=== PATIENT | female | born 2000 | race Caucasian/White ===

== ENCOUNTER 2019-07-26 05:47 | Day surgery (SDC) | payer OTHER ==
[2019-07-26] MEDS ORDERED: CEFAZOLIN 1 GM INJ (07:25)
[2019-07-26] MEDS ORDERED: PROPOFOL 20 ML ×2 (07:25→08:17)
[2019-07-26] MEDS ORDERED: FENTAnyl 50 MCG/ML VIAL (07:26)
[2019-07-26] MEDS ORDERED: MIDAZOLAM 1 MG/ML 2 ML INJ (07:26)
[2019-07-26] MEDS ORDERED: FENTAnyl 50 MCG/ML VIAL IV ×3 (07:30)
[2019-07-26] MEDS ORDERED: ONDANSETRON 4 MG INJ IV (07:30)
[2019-07-26] MEDS ORDERED: OXYCODONE/ACETAMINOPHEN (5/325) TAB PO ×2 (07:30)
[2019-07-26] MEDS ORDERED: MEPERIDINE 25 MG INJ IV (07:30)
[2019-07-26] MEDS: BUPIVACAINE 0.5% (SDV) 30 ML INJ (07:45)
[2019-07-26] MEDS: DEXAMETHASONE 4 MG/ML 1 ML INJ (07:45)
[2019-07-26] MEDS: LIDOCAINE 2% (MDV) 20 ML INJ (07:45)
[2019-07-26] MEDS ORDERED: KETOROLAC 30 MG INJ (08:17)
== END 2019-07-26 10:24 | disposition home or self-care (01) ==
LOC: SDS 05:47
DX: M20.12 Hallux valgus (acquired), left foot (principal); M21.612 Bunion of left foot
CPT/HCPCS: 28299